=== PATIENT | male | born 1995 | race Caucasian/White ===

== ENCOUNTER 2024-04-13 13:47 | Emergency (ER) | payer OTHER, SELFPAY ==
[2024-04-13 13:49] VITALS: BP 167/115
[2024-04-13 14:01] VITALS: BMI 35.6
[2024-04-13 14:37] LABS: Urine Albumin Trace (Neg - Trace); Urine Bilirubin 1+ (Negative); Urine Character Clear (Clear); Urine Color Yellow; Urine Glucose Negative (Negative); Urine Ketone 1+ (Negative); Urine Leukocyte Negative (Negative); Urine Nitrite Negative (Negative); Urine Occult Blood Negative (Negative); Urine Urobilinogen Negative (Neg - 1+)
--- NOTE | 2024-04-13 14:46 | ED.GENMED ---
History of Present Illness
<Arcelia Tapia PA-C - Last Filed: 04/13/24 18:37>
General
Chief Complaint: Crisis Evaluation
Source: patient
Exam Limitations: none
Time Seen by Provider: 04/13/24 13:55
Nursing documentation reviewed up to this point in time: agreed with
History of Present Illness
History of Present Illness:
Patient is a 28-year-old male with history hypertension, ADHD, depression, autism presenting to the emergency department due to suicidal ideations. Patient states that he has been struggling recently with his alcohol and sexual addictions. Patient
states that he feels overwhelmed with everything going on in his life. He does have suicidal thoughts and states that last night he 'had a knife to his heart '. Patient states after a argument with his stepfather last night he ran off into the
[place] and that decay control operator were called for a welfare check. He did return voluntarily and the decay control operator returns today where he request that they bring him to the emergency department for treatment.
Patient does state that he feels safe at home. He denies any homicidal ideations. He denies hearing any voices.
Patient presents seeking inpatient treatment. Patient has had suicidal attempts in the past with attempted overdose. He has been inpatient a few times in the past, as well.
Patient states he has not had any alcohol in the past 2 months.
Review of Systems
<Arcelia Tapia PA-C - Last Filed: 04/13/24 18:37>
Review of Systems
Allergies reviewed?: Yes
All Other Systems: ROS reviewed and negative except as documented in HPI and ROS
Phy Exam
<Arcelia Tapia PA-C - Last Filed: 04/13/24 18:37>
Physical Exam
Physical Exam:
Vitals: Hypertensive, otherwise vital signs stable. Afebrile
General: Patient is well appearing, no acute distress
Skin: Warm and dry, no rashes or lesions
Head: Normocephalic, atraumatic
Throat: Protecting airway
Neck: Normal ROM, no cervical spine tenderness
Cardiac: Regular rate, normal rhythm. Heart sounds normal
Pulm: No apparent respiratory distress
Abdomen: Nondistended
Extremities: No evidence of cyanosis or edema
Neuro: Grossly intact
Psychiatric: Cooperative. Normal affect.
Course
<Arcelia Tapia PA-C - Last Filed: 04/13/24 18:37>
Orders/Labs/Results
Orders:
Orders
04/13/24 13:52
Crisis Consult Urgent
Reason for Consult: SI
04/13/24 14:04
1:1 Observation - Suicide/ Violent Behavior As Directed
04/13/24 14:20
Urinalysis Reflex To Culture Urgent
Date Specimen was Collected: 04/13/24
Time Specimen was Collected: 14:06
Urine Drug Abuse Screen Urgent
Date Specimen was Collected: 04/13/24
Time Specimen was Collected: 14:06
Abnormal Lab Results
04/13/24
14:20
Urine Ketones 1+ A
(Negative)
Urine Bilirubin 1+ A
(Negative)
Vital Signs
Initial and Last Documented VS:
Initial Vital Signs
Temp Pulse Resp BP Pulse Ox
99.2 F 100 18 167/115 100
04/13/24 13:49 04/13/24 13:49 04/13/24 13:49 04/13/24 13:49 04/13/24 13:49
Last Documented Vital Signs
Temp Pulse Resp BP Pulse Ox
99.2 F 100 18 147/96 100
04/13/24 13:49 04/13/24 13:49 04/13/24 13:49 04/13/24 18:20 04/13/24 13:49
<Patricia Solorzano DO - Last Filed: 04/13/24 15:15>
Orders/Labs/Results
Orders:
Orders
04/13/24 13:52
Crisis Consult Urgent
Reason for Consult: SI
04/13/24 14:04
1:1 Observation - Suicide/ Violent Behavior As Directed
04/13/24 14:20
Urinalysis Reflex To Culture Urgent
Date Specimen was Collected: 04/13/24
Time Specimen was Collected: 14:06
Urine Drug Abuse Screen Urgent
Date Specimen was Collected: 04/13/24
Time Specimen was Collected: 14:06
Abnormal Lab Results
04/13/24
14:20
Urine Ketones 1+ A
(Negative)
Urine Bilirubin 1+ A
(Negative)
Vital Signs
Initial and Last Documented VS:
Initial Vital Signs
Temp Pulse Resp BP Pulse Ox
99.2 F 100 18 167/115 100
04/13/24 13:49 04/13/24 13:49 04/13/24 13:49 04/13/24 13:49 04/13/24 13:49
Last Documented Vital Signs
Temp Pulse Resp BP Pulse Ox
99.2 F 100 18 147/96 100
04/13/24 13:49 04/13/24 13:49 04/13/24 13:49 04/13/24 18:20 04/13/24 13:49
<Arcelia Tapia PA-C - Last Filed: 04/13/24 18:37>
MDM/Problems Addressed
Differential Diagnosis Includes:
Not limited to: Suicidal thoughts, suicidal ideation, depression hypertension
MDM/Problems Addressed:
28-year-old male with history as documented presenting with active suicidal ideations. Patient does report thoughts of suicide and last night had 'a knife to his heart '. Patient seeking inpatient hospitalization. He does have past suicidal
attempts with attempted overdose and has been inpatient for treatment in the past. No homicidal thoughts. Hypertensive, otherwise vitals stable. Exam as above. Patient is actively suicidal and I do deem him as a risk to himself. He will require
inpatient treatment. Crisis consult placed. Patient has a 1:1 ordered and will be a safety hold in the department. Patient currently voluntarily seeking inpatient treatment, if this changes will initiate filing of 302. Will closely monitor and
reassess. Disposition pending placement.
Chronic conditions affecting care:
Hypertension
Acute Exacerbation and/or Progression of Chronic Illness:
Acutely hypertensive
<Arcelia Tapia PA-C - Last Filed: 04/13/24 18:37>
*Pulse Oximetry
Patient hypoxic: no
*EKG
Interpreted by ED Provider?: NA
*Show Operations Supervisor Interpretation
Rate: Show Operations Supervisor- N/A
*Critical Care Note
Total Time (30-74mins, 75-104mins- exclusive of procedures): Not Applicable
<Arcelia Tapia PA-C - Last Filed: 04/13/24 18:37>
Patient Management
Social determinants of health affecting care: Living situation and Substance abuse
<Arcelia Tapia PA-C - Last Filed: 04/13/24 18:37>
Update Note
Update Note:
Update 5:52 PM: Patient accepted to [facility] facility. BP remains elevated although did decrease to 147/96. Patient asymptomatic. Will recommend PCP/further management outpatient for possible antihypertensive therapy.
ED Attending Note
<Arcelia Tapia PA-C - Last Filed: 04/13/24 18:37>
-
Portions of this chart may have been created with voice recognition software.� Occasional wrong word or��sound alike� substitutions may have occurred due to the inherent limitations of voice recognition software.
<Patricia Solorzano DO - Last Filed: 04/13/24 15:15>
ED Attending Note
Patient seen and examined by attending physician: Yes
I performed the substantive portion of visit, reviewed & personally made and approve the management plan that is documented in note by myself or SHANA.: Yes
I performed a history and physical exam of patient and discussed management with resident, I reviewed resident's note and agree with documented findings and plan of care.: Yes
ED Attending Note:
28-year-old male with history of alcohol abuse, sexual addiction, depression presenting to the emergency department for suicidal ideations and intent. Patient reports last evening he was having suicidal thoughts, had a knife to his chest. Denies
acute medical complaints. Vital signs within normal limits.
Patient in no acute distress on arrival, however does appear to be a threat to himself and others given suicidal ideations and intention. Patient is currently on a 201, agreeable to seeking psychiatric care. Will maintain on one-to-one
observation. Crisis is involved. Feel medically clear for psychiatric evaluation.
Discharge Plan
Departure
Patient Disposition: Psych Facility
Date of Disposition: 04/13/24
Time of Disposition: 18:33
Patient with high blood pressure during this ER visit?: Yes
Discharge Problem:
Suicidal ideation
Instructions: BLOOD PRESSURE
Referrals:
Justice Jones, DO [Family Provider] -
Activity Restrictions/Additional Instructions:
Return to the emergency department with any suicidal thoughts, thoughts of harming yourself or anyone else, or any other concerns
Your blood pressure was elevated while in the emergency department. You should follow with a primary care doctor for further evaluation/management and possible treatment of hypertension.
You are medically cleared for psychiatric treatment
Interventions
Interventions:
*Risk Screen - Suicide Last Done: 04/13/24 14:01
*General Assessment Last Done: 04/13/24 14:01
*Neglect/Abuse Screening Last Done: 04/13/24 14:01
ED- Fall Risk Assessment Last Done: 04/13/24 14:01
*ED COVID-19 Vaccine History Last Done: 04/13/24 14:01
ED-Psychological Assessment Last Done: 04/13/24 14:01
Discharge Date and Time
Print Language: LAO
[2024-04-13 15:10] LABS: Amphetamines Negative (Negative); Barbiturates Negative (Negative); Benzodiazepines Negative (Negative); Buprenorphine Negative (Negative); Cocaine Negative (Negative); Marijuana Negative (Negative); Methadone Negative (Negative); Methamphetamines Negative (Negative); Opiates Negative (Negative); Phencyclidine Negative (Negative); Tricyclic Antidepressants Negative (Negative)
[2024-04-13 18:20] VITALS: BP 147/96
[2024-04-13 21:26] VITALS: BP 161/89
== END 2024-04-13 23:51 ==
LOC: EMR 13:47
PROVIDERS: Physician Assistant; EMERGENCY PHYSICIAN Student in an Organized Health Care Education/Training Program; FAMILY PHYSICIAN Family Medicine
DX: R45.851 Suicidal ideations (principal); F32.A Depression, unspecified; F84.0 Autistic disorder; I10 Essential (primary) hypertension; Z91.51 Personal history of suicidal behavior; Z63.8 Other specified problems related to primary support group
CPT/HCPCS: 99285; 80306; 81003

== ENCOUNTER 2024-05-04 19:15 | Emergency (ER) | payer OTHER, SELFPAY ==
--- NOTE | 2024-05-04 19:17 | ED.GENMED ---
History of Present Illness
General
Chief Complaint: Crisis Evaluation
Time Seen by Provider: 05/04/24 19:17
History of Present Illness
History of Present Illness:
TIME OF INITIAL ENCOUNTER: 7:20 PM
HPI: The patient presents due to suicidal ideation. He says he has a history of sexual addiction and relapse with this after he was discharged from [facility] 1 month ago. He states that he has not drank alcohol in the past 2 months and denies
alcohol use. The last time that he was here, he admitted to having a thought of killing himself by using a knife to his chest and did have a knife to his chest last month. This time he does not have any specific plan. However he feels very
depressed and wants help. He denies any medical complaints. He was brought in here by police patrol officer tristin.
EXAM:
GENERAL: Well appearing in no distress
HEENT: Moist oral mucosa
CARDIOVASCULAR: No murmurs, normal heart rate, regular rhythm, No chest wall tenderness
PULMONARY: No respiratory distress, breath sounds are clear and equal
ABDOMEN: Soft with no peritoneal signs, no tenderness
NEUROLOGIC: Excellent strength all extremities, no coordination deficits
PSYCHIATRIC: Somewhat of a flat depressed affect but cooperative
EXTREMITIES: Nontender, no edema, moves all extremities equally
SKIN: No rash, no lesions
NUMBER AND COMPLEXITY OF PROBLEMS ADDRESSED AT THE ENCOUNTER
� Chronic conditions affecting care: ADHD, anxiety/depression, suicidal ideation/attempt, sexual addiction
� Acute Exacerbation and/or Progression of Chronic Illness: This is an acute but recurring problem
� Differential Diagnosis includes: SI, depression, exacerbation of sexual addiction
AMOUNT AND/OR COMPLEXITY OF DATA TO BE REVIEWED AND ANALYZED
� I performed an independent evaluation of and my interpretation is:
EKG:
CT:
X-rays:
Laboratory Studies: White count 12.5, hemoglobin normal, chemistries unremarkable, UDS negative, alcohol undetected, COVID-negative
Other:
� Review of other/old records: I reviewed the notes from when the patient was here 04/13/2024. At that time it was noted the patient has a history of alcohol abuse, sexual addiction�at that time he had suicidal ideation and was
transferred to [facility]. UDS from last month was entirely negative.
� Clinical information was obtained by an independent historian: None needed
� Prescriptions/Medications Considered but not given:
� Further testing considered but not performed:
RISK OF COMPLICATIONS AND/OR MORBIDITY OR MORTALITY OF PATIENT MANAGEMENT
� Social determinants of health affecting care: Lives at home, was brought here by police
� Discussion with other providers: I have asked crisis for consultation at 7:25 p.m.
� Escalation of care including admission/observation vs risk of discharge considered: The patient has remained calm throughout his stay in the Emergency Department.
ANY OTHER UPDATES:
11 PM: I discussed case with crisis who states that he has been accepted at a psychiatric facility and is awaiting transportation.
Phy Exam
Physical Exam
Physical Exam:
See HPI
Sepsis
Sepsis Screening
Sepsis Assessment: Sepsis Ruled Out
Sepsis Screen
Sepsis Screen: Sepsis Ruled Out
Date: 05/05/24
Time: 00:57
Course
Orders/Labs/Results
Orders:
Orders
05/04/24 19:22
Crisis Consult Urgent
Reason for Consult: SI
05/04/24 19:28
1:1 Observation - Suicide/ Violent Behavior As Directed
05/04/24 19:32
Acetaminophen [Tylenol] 1,000 mg .ROUTE .STK-MED ONE
05/04/24 19:36
Acetaminophen [Tylenol] 1,000 mg PO NOW STA
05/04/24 22:51
Alcohol Urgent
Basic Metabolic Panel Urgent
COVID-19 Antigen Urgent
Source: Nasal Swab
Complete Blood Count/With Diff Urgent
Urine Drug Abuse Screen Urgent
Date Specimen was Collected: 05/04/24
Time Specimen was Collected: 22:44
Abnormal Lab Results
05/04/24
22:51
WBC 12.5 H 10^3/uL
(4.8-10.8)
MCH 31.6 H pg
(27.0-31.0)
Abs Immat Gran (auto) 0.1 H 10^3/uL
(0-0.05)
Absolute Neuts (auto) 8.5 H 10^3/uL
(1.4-6.5)
Absolute Monos (auto) 1.0 H 10^3/uL
(0.1-0.6)
05/04/24 22:51
05/04/24 22:51
Vital Signs
Initial and Last Documented VS:
Initial Vital Signs
Temp
37.8 C
05/04/24 19:22
Last Documented Vital Signs
Temp Pulse Resp BP Pulse Ox
37.0 C 101 19 145/98 98
05/04/24 23:40 05/04/24 23:40 05/04/24 23:40 05/04/24 23:40 05/04/24 23:40
*Critical Care Note
Total Time (30-74mins, 75-104mins- exclusive of procedures): Not Applicable
ED Attending Note
-
Portions of this chart may have been created with voice recognition software.� Occasional wrong word or��sound alike� substitutions may have occurred due to the inherent limitations of voice recognition software.
Discharge Plan
Departure
Patient Disposition: Psych Facility
Date of Disposition: 05/04/24
Time of Disposition: 21:05
Discharge Problem:
Depression with suicidal ideation
Referrals:
UNKNOWN - PT NOT,INTERVIEWE [Family Provider] -
Interventions
Interventions:
*Risk Screen - Suicide Last Done: 05/04/24 19:22
*General Assessment Last Done: 05/04/24 19:22
*Neglect/Abuse Screening Last Done: 05/04/24 19:22
*ED COVID-19 Vaccine History Last Done: 05/04/24 19:59
ED-Psychological Assessment Last Done: 05/04/24 20:01
Discharge Date and Time
Print Language: SETSWANA
[2024-05-04 19:28] VITALS: BP 144/108
[2024-05-04] MEDS: TYLENOL 1000 MG PO (19:36)
[2024-05-04 22:59] LABS: % Basophils 0.7 % (0-2); % Eosinophils 0.5 % (0-6); % Immature Granulocytes 0.4 % (0-0.5); % Monocytes 8.1 % (1.7-9.3); % Neutrophils 68.3 % (42.2-75.2); Absolute Basophils 0.1 10^3/uL (0-0.2); Absolute Eosinophils 0.1 10^3/uL (0-0.7); Absolute Immature Granulocytes 0.1 10^3/uL (0-0.05); Absolute Lymphocytes 2.8 10^3/uL (1.2-3.4); Absolute Neutrophils 8.5 10^3/uL (1.4-6.5); Hematocrit 49.3 % (39.0-52.0); Hemoglobin 17.7 g/dL (13.0-18.0); Mean Corp Hgb Conc. 35.9 g/dL (33.0-37.0); Mean Corpuscular Hgb 31.6 pg (27.0-31.0); Nucleated Red Blood Cells % 0 % (-); Platelet Count 345 10^3/uL (130-400); Red Cell Dist. Width 12.4 % (11.5-14.5); White Blood Cell Count 12.5 10^3/uL (4.8-10.8)
[2024-05-04 23:09] LABS: Amphetamines Negative (Negative); Barbiturates Negative (Negative); Benzodiazepines Negative (Negative); Buprenorphine Negative (Negative); Cocaine Negative (Negative); Marijuana Negative (Negative); Methadone Negative (Negative); Methamphetamines Negative (Negative); Opiates Negative (Negative); Phencyclidine Negative (Negative); Tricyclic Antidepressants Negative (Negative)
[2024-05-04 23:13] LABS: Blood Urea Nitrogen 16 mg/dl (9-20); Calcium 10.1 mg/dl (8.4-10.2); Carbon Dioxide 25 mmol/L (22-30); Chloride 99 mmol/L (98-107); Glucose 87 mg/dl (70-99); Potassium 4.1 mmol/L (3.5-5.1); Sodium 139 mmol/L (135-145); eGFR > 60.00
[2024-05-04 23:15] LABS: COVID-19 Antigen Negative (Negative)
[2024-05-04 23:17] LABS: Alcohol None Detected
[2024-05-04 23:40] VITALS: BP 145/98
== END 2024-05-05 01:00 ==
LOC: EMR 19:15
PROVIDERS: EMERGENCY PHYSICIAN Emergency Medicine
DX: F32.A Depression, unspecified (principal); R45.851 Suicidal ideations
CPT/HCPCS: 99285; 80048; 80306; 82077; 85025; 87811

== ENCOUNTER 2024-05-21 19:03 | Emergency (ER) | payer OTHER, SELFPAY ==
[2024-05-21 19:20] VITALS: BP 155/107
[2024-05-21 20:37] LABS: Hemoglobin 16.9 g/dL (13.0-18.0); Mean Corp Hgb Conc. 35.2 g/dL (33.0-37.0); Mean Corpuscular Volume 90.9 fL (80.0-94.0); Mean Platelet Volume 9.9 fL (7.4-10.4); Platelet Count 385 10^3/uL (130-400); Red Blood Cell Count 5.28 10^6/uL (4.70-6.10); White Blood Cell Count 14.1 10^3/uL (4.8-10.8)
--- NOTE | 2024-05-21 20:38 | ED.GENMED ---
History of Present Illness
General
Chief Complaint: Crisis Evaluation
Source: patient
Exam Limitations: none
Time Seen by Provider: 05/21/24 19:27
Nursing documentation reviewed up to this point in time: agreed with
History of Present Illness
History of Present Illness:
Patient with history of anxiety and depression, presents to ED secondary to suicidal ideation, which developed after verbal altercation with his family 4 days ago. Denies homicidal ideation. Denies previous suicidal attempts, bark has been
evaluated for suicidal ideation in the past. Denies use of any illicit medications. Denies recent illness. Patient has no additional complaints at this time.
Review of Systems
Review of Systems
Allergies reviewed?: Yes
All Other Systems: ROS reviewed and negative except as documented in HPI and ROS
Constitutional: Reports no symptoms; Denies fever or chills
Respiratory: Reports no symptoms
Cardiac: Reports no symptoms
ABD/GI: Reports no symptoms
Musculoskeletal: Reports no symptoms
Skin: Reports no symptoms
Psychiatric: Reports depression, anxiety and suicidal
Phy Exam
Physical Exam
Physical Exam:
Physical Exam
General: no apparent distress, not acutely ill. afebrile
Head: nc/at. eomi
Neck: supple. no meningeal signs.
Heart: s1/s2 regular rate and rhythm, no murmur. equal radial pulses.
Lungs: no acute respiratory distress. clear bilaterally
Abdomen: normal bowel sounds. not tender.
Neuro: alert and oriented x 3. no focal neurological deficits
Skin: no rash
Psychiatric: well kept. interactive and cooperative
Extremities: no edema. no calf tenderness.
Course
Orders/Labs/Results
Orders:
Orders
05/21/24 19:28
Crisis Consult Urgent
Reason for Consult: suicidal ideation
05/21/24 20:23
Basic Metabolic Panel Urgent
COVID-19 Antigen Urgent
Source: Nasal Swab
Complete Blood Count/No Diff Urgent
Urine Drug Abuse Screen Urgent
Date Specimen was Collected: 05/21/24
Time Specimen was Collected: 20:06
Abnormal Lab Results
05/21/24
20:23
WBC 14.1 H 10^3/uL
(4.8-10.8)
MCH 32.0 H pg
(27.0-31.0)
BUN 21 H mg/dl
(9-20)
Glucose 104 H mg/dl
(70-99)
Calcium 10.3 H mg/dl
(8.4-10.2)
05/21/24 20:23
05/21/24 20:23
Vital Signs
Initial and Last Documented VS:
Initial Vital Signs
Temp Pulse Resp BP Pulse Ox
99.6 F 119 20 155/107 100
05/21/24 19:20 05/21/24 19:20 05/21/24 19:20 05/21/24 19:20 05/21/24 19:20
Last Documented Vital Signs
Temp Pulse Resp BP Pulse Ox
98.4 F 91 18 140/94 100
05/21/24 21:48 05/21/24 21:48 05/21/24 21:48 05/21/24 21:48 05/21/24 21:48
MDM/Problems Addressed
MDM/Problems Addressed:
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 Patient will be medically screened and afterwards, will be transferred to inpatient psychiatric facility for further evaluation and treatment.
*Critical Care Note
Total Time (30-74mins, 75-104mins- exclusive of procedures): Not Applicable
ED Attending Note
-
Portions of this chart may have been created with voice recognition software.� Occasional wrong word or��sound alike� substitutions may have occurred due to the inherent limitations of voice recognition software.
Discharge Plan
Departure
Patient Disposition: Psych Facility
Date of Disposition: 05/21/24
Time of Disposition: 20:40
Patient Status:: 201
Discharge Problem:
Suicidal ideation
Referrals:
UNKNOWN - PT NOT,INTERVIEWE [Family Provider] -
Interventions
Interventions:
*Risk Screen - Suicide Last Done: 05/21/24 19:31
*General Assessment Last Done: 05/21/24 19:31
*Neglect/Abuse Screening Last Done: 05/21/24 19:31
ED- Fall Risk Assessment Last Done: 05/22/24 05:01
*ED COVID-19 Vaccine History Last Done: 05/21/24 19:31
*Nursing Disposition Last Done: 05/22/24 05:01
ED-Psychological Assessment Last Done: 05/21/24 19:31
Discharge Date and Time
Discharge Date/Time: 05/22/24 05:02
Print Language: SERBIAN
[2024-05-21 20:45] LABS: Amphetamines Negative (Negative); Barbiturates Negative (Negative); Benzodiazepines Negative (Negative); Buprenorphine Negative (Negative); Cocaine Negative (Negative); Marijuana Negative (Negative); Methadone Negative (Negative); Methamphetamines Negative (Negative); Opiates Negative (Negative); Phencyclidine Negative (Negative); Tricyclic Antidepressants Negative (Negative)
[2024-05-21 20:49] LABS: COVID-19 Antigen Negative (Negative)
[2024-05-21 20:50] LABS: Blood Urea Nitrogen 21 mg/dl (9-20); Calcium 10.3 mg/dl (8.4-10.2); Carbon Dioxide 26 mmol/L (22-30); Chloride 99 mmol/L (98-107); Glucose 104 mg/dl (70-99); Potassium 3.8 mmol/L (3.5-5.1); Sodium 137 mmol/L (135-145); eGFR > 60.00
[2024-05-21 21:48] VITALS: BP 140/94
== END 2024-05-22 05:02 ==
LOC: EMR 19:03
PROVIDERS: EMERGENCY PHYSICIAN Emergency Medicine
DX: R45.851 Suicidal ideations (principal); F41.8 Other specified anxiety disorders
CPT/HCPCS: 99283; 80048; 80306; 85027; 87811

== ENCOUNTER 2024-07-04 20:31 | Emergency (ER) | payer OTHER, SELFPAY ==
[2024-07-04 20:48] VITALS: BP 179/99
--- NOTE | 2024-07-04 22:02 | ED.GENMED ---
History of Present Illness
General
Chief Complaint: Crisis Evaluation
Source: patient
Exam Limitations: none
Time Seen by Provider: 07/04/24 20:48
Nursing documentation reviewed up to this point in time: agreed with
History of Present Illness
History of Present Illness:
Patient to ED for multiple issues. States he was feeling suicidal and then 'had a break'. Brought to ED by police. He states he is no longer suicidal but is homeless and jobless, has no money. He reports problems with drugs and alcohol and then
states he only has issue with alcohol. States his last drink was 3-4 weeks ago. He is requesting inpatient rehab or psychiatric care.
Past History
Past History
ED Past Medical History: None (Denies any medical problems)
Review of Systems
Review of Systems
Allergies reviewed?: Yes
All Other Systems: ROS reviewed and negative except as documented in HPI and ROS
Constitutional: Reports no symptoms
EENT: Reports no symptoms
Respiratory: Reports no symptoms
Cardiac: Reports no symptoms
ABD/GI: Reports no symptoms
Musculoskeletal: Reports no symptoms
Skin: Reports no symptoms
Neurological: Reports no symptoms
Psychiatric: Reports other (States he had suicidal thoughts earlier tonight and then had 'a break'. Denies any SI, HI now.)
Phy Exam
General Physical Exam
General Presentation: well appearing and no apparent distress
General age: appears stated age
General Skin: warm and dry
General Habitus: normal
General Mental: alert
General Hydration: appears well hydrated
Neurological Exam
Neurological Exam: alert and oriented x3
Musculoskeletal Exam
Musculoskeletal Exam: full ROM and neuro vasc intact
Skin Exam
Skin Exam: normal color and warm/dry
Psychiatric Exam
Psychiatric Exam: normal mood/affect
Course
Orders/Labs/Results
Orders:
Orders
07/04/24 21:28
Crisis Consult Urgent
Reason for Consult: SI
07/04/24 21:51
Alcohol Urgent
Basic Metabolic Panel Urgent
Complete Blood Count/With Diff Urgent
Urine Drug Abuse Screen Urgent
Date Specimen was Collected: 07/04/24
Time Specimen was Collected: 21:49
Abnormal Lab Results
07/04/24
21:51
RBC 4.57 L 10^6/uL
(4.70-6.10)
MCH 31.7 H pg
(27.0-31.0)
Abs Immat Gran (auto) 0.1 H 10^3/uL
(0-0.05)
Immature Gran % 0.7 H %
(0-0.5)
Glucose 111 H mg/dl
(70-99)
07/04/24 21:51
07/04/24 21:51
Vital Signs
Initial and Last Documented VS:
Initial Vital Signs
Temp Pulse Resp BP Pulse Ox
98.1 F 101 17 179/99 99
07/04/24 20:48 07/04/24 20:48 07/04/24 20:48 07/04/24 20:48 07/04/24 20:48
Last Documented Vital Signs
Temp Pulse Resp BP Pulse Ox
98.5 F 82 16 136/81 99
07/05/24 07:58 07/05/24 07:58 07/05/24 12:13 07/05/24 07:58 07/05/24 07:58
*Critical Care Note
Total Time (30-74mins, 75-104mins- exclusive of procedures): Not Applicable
Update Note
Update Note:
Patient was evaluated by crisis who feels his is not suicidal/homicidal. Requesting [facility] consult. [facility] notified and will be in to see patient.
ED Attending Note
-
Portions of this chart may have been created with voice recognition software.� Occasional wrong word or��sound alike� substitutions may have occurred due to the inherent limitations of voice recognition software.
Discharge Plan
Departure
Patient Disposition: Home (Routine Discharge)
Date of Disposition: 07/05/24
Time of Disposition: 11:03
Patient with high blood pressure during this ER visit?: No
Condition: Good
Discharge Problem:
Alcohol abuse
Prescriptions:
No Action
No Current Medications
0
Referrals:
Justice Jones, DO [Primary Care Provider] -
Interventions
Interventions:
*Risk Screen - Suicide Last Done: 07/04/24 20:50
*Neglect/Abuse Screening Last Done: 07/04/24 20:50
ED- Fall Risk Assessment Last Done: 07/05/24 07:58
*ED COVID-19 Vaccine History Last Done: 07/04/24 20:50
*Nursing Disposition Last Done: 07/05/24 12:13
ED-Psychological Assessment Last Done: 07/05/24 07:58
Discharge Date and Time
Discharge Date/Time: 07/05/24 12:14
Print Language: [id number]
[2024-07-04 22:06] LABS: % Basophils 0.9 % (0-2); % Eosinophils 1.3 % (0-6); % Immature Granulocytes 0.7 % (0-0.5); % Lymphocytes 28.5 % (20.5-51.1); % Monocytes 6.8 % (1.7-9.3); % Neutrophils 61.8 % (42.2-75.2); Absolute Basophils 0.1 10^3/uL (0-0.2); Absolute Eosinophils 0.1 10^3/uL (0-0.7); Absolute Immature Granulocytes 0.1 10^3/uL (0-0.05); Absolute Lymphocytes 2.6 10^3/uL (1.2-3.4); Absolute Monocytes 0.6 10^3/uL (0.1-0.6); Absolute Neutrophils 5.6 10^3/uL (1.4-6.5); Hematocrit 41.5 % (39.0-52.0); Hemoglobin 14.5 g/dL (13.0-18.0); Mean Corp Hgb Conc. 34.9 g/dL (33.0-37.0); Mean Corpuscular Hgb 31.7 pg (27.0-31.0); Mean Corpuscular Volume 90.8 fL (80.0-94.0); Nucleated Red Blood Cells % 0 % (-); Platelet Count 268 10^3/uL (130-400); Red Blood Cell Count 4.57 10^6/uL (4.70-6.10); Red Cell Dist. Width 11.9 % (11.5-14.5); White Blood Cell Count 9.1 10^3/uL (4.8-10.8)
[2024-07-04 22:22] LABS: Amphetamines Negative (Negative); Barbiturates Negative (Negative); Benzodiazepines Negative (Negative); Buprenorphine Negative (Negative); Cocaine Negative (Negative); Marijuana Negative (Negative); Methadone Negative (Negative); Methamphetamines Negative (Negative); Opiates Negative (Negative); Phencyclidine Negative (Negative); Tricyclic Antidepressants Negative (Negative)
[2024-07-04 22:26] LABS: Calcium 9.4 mg/dl (8.4-10.2); Carbon Dioxide 25 mmol/L (22-30); Chloride 100 mmol/L (98-107); Glucose 111 mg/dl (70-99); Potassium 4.5 mmol/L (3.5-5.1); Sodium 137 mmol/L (135-145); eGFR > 60.00
[2024-07-04 22:35] LABS: Blood Urea Nitrogen 17 mg/dl (9-20)
[2024-07-04 22:40] LABS: Alcohol None Detected
--- NOTE | 2024-07-04 23:00 | EDRN ---
Report received, patient sleeping at this time, still waiting on [facility] to call back, no further complaints at this time.
--- NOTE | 2024-07-05 02:00 | EDRN ---
Patient remains asleep at this time, will continue to monitor
--- NOTE | 2024-07-05 05:55 | EDRN ---
[facility] was informed they did speak with patient and he has been accepted at [facility], however they can't set up transport until after 0800, report that the [facility] account maintenance representative who will be in this morning will work on transport
and an updated time.
[2024-07-05 07:58] VITALS: BP 136/81; BMI 23.0
== END 2024-07-05 12:14 | disposition home or self-care (01) ==
LOC: EMR 20:31
PROVIDERS: Nurse Practitioner; EMERGENCY PHYSICIAN Student in an Organized Health Care Education/Training Program; PRIMARYCARE PHYSICIAN Family Medicine
DX: F10.10 Alcohol abuse, uncomplicated (principal); Z59.00 Homelessness unspecified
CPT/HCPCS: 99285; 80048; 80306; 82077; 85025